=== PATIENT | male | born 1960 | race Two or more races ===

== ENCOUNTER → 2019-08-17 | Outpatient (CLI) | payer BC ==
[2019-08-17 09:27] LABS: Alanine Aminotransferase 30 U/L (16-61); Aspartate Aminotransferase 15 U/L (15-37); Cholesterol 194 mg/dL (< 200); HDL Cholesterol 38 mg/dL (40-59); LDL Cholesterol 123 mg/dL (< 100); Triglycerides 126 mg/dL (< 150)
== END | disposition home or self-care (01) ==
LOC: LAB 08:35
PROVIDERS: ATTEND Internal Medicine
DX: E11.9 Type 2 diabetes mellitus without complications (principal)
CPT/HCPCS: 36415; 80061; 83036; 84450; 84460